=== PATIENT | male | born 1975 | race Caucasian/White ===

== ENCOUNTER 2023-03-17 21:57 | Emergency (ER) | payer SELFPAY ==
[2023-03-17 22:06] VITALS: BP 136/89; PULSE 63; RESP 14; TEMP 36.5; O2SAT 99; BMI 30.9
[2023-03-17 22:13] VITALS: BP 149/93; PULSE 79; RESP 16; O2SAT 100
--- NOTE | 2023-03-17 22:13 | XRR_ITS ---
PROCEDURE INFORMATION: Exam: XR Chest Exam date and time: 03/17/2023 10:18 PM Age: 47 years old Clinical indication: Pain; Chest pressure; Additional info: Cp TECHNIQUE: Imaging protocol: Radiologic exam of the chest. Views: 1 view. COMPARISON: No relevant prior studies available. FINDINGS: Lungs: Unremarkable. No consolidation. Pleural spaces: Unremarkable. No pleural effusion. No pneumothorax. Heart/Mediastinum: Unremarkable. No cardiomegaly. Bones/joints: Unremarkable. XR/XR chest 1V portable [id number] IMPRESSION: No acute findings.
--- NOTE | 2023-03-17 22:14 | ED_ITS ---
HPI - General Adult General: Chief complaint: General Medical Stated complaint: high bp Time Seen by Provider: 03/17/23 22:10 Source: patient Mode of arrival: ambulatory Limitations: no limitations History of Present Illness: 47-year-old male has a history of hypertension states that his blood pressure been running high states his PCP had him increase his lisinopril from 20 to 30 mg states that he is concerned as today's blood pressures been running higher than normal today's blood pressure in triage is normal he states he had some slight pain in his left shoulder as well throughout the day. Denies any shortness of breath or fever Associated symptoms: Reports chest pain; Deny dyspnea, headache(s), nausea, rash or vomiting Review of Systems Const: Denies: fever(s) or chills ENMT: Denies: throat pain or dental pain Card: Reports: chest pain Resp: Denies: dyspnea GI: Denies: abdominal pain, nausea, vomiting or diarrhea : Denies: dysuria Musc: Denies: neck pain or back pain Skin/Breast: Denies: rash Neuro: Denies: headache(s) PFSH ED PFSH: Medical History (Updated 03/17/23 @ 23:31 by Emily Palacios MD) Hypertension Social History (Updated 03/17/23 @ 22:15 by Emily Palacios MD) Substance/Drug Use: unknown Physical Exam Const: COMMON NORMALS: no acute distress, patient oriented x3 and healthy appearing HENMT: COMMON NORMALS: normocephalic and atraumatic HEAD & SCALP: normocephalic and atraumatic Eye: COMMON NORMALS: Equal, round and reactive pupils present and EOMs intact bilaterally PUPIL: Yes Equal, round and reactive pupils present Neck/C-Spine: COMMON NORMALS: full ROM and supple Chest: COMMONS NORMALS: normal inspection of the chest and normal palpation of entire chest wall Resp: COMMON NORMALS: normal respiratory effort, No retractions, No use of accessory muscles and clear to auscultation bilaterally AUSCULTATION: clear to auscultation bilaterally Cardio: COMMON NORMALS: regular rate, regular rhythm and No murmurs present (Cardio) RATE: regular rate RHYTHM: regular rhythm GI: COMMON NORMALS: Normal to inspection, nondistended, normoactive bowel sounds present, Soft to palpation, non-tender and no masses PALPATION: Yes Soft to palpation Extremity: COMMON NORMALS: normal to inspection and full ROM Neuro: COMMON NORMALS: patient oriented x3, moves all extremities and no focal motor deficits Psych: COMMON NORMALS: mental status grossly normal, Normal thought process present and cooperative THOUGHT PROCESS: Normal thought process present Skin: COMMON NORMALS: no rashes or lesions noted and no wounds GENERAL SKIN EXAM: no rashes or lesions noted Course Vital Signs: Vital signs: Vital Signs Temperature 97.7 F 03/17/23 22:06 Pulse Rate 79 03/17/23 23:42 Respiratory Rate 15 03/17/23 23:42 Blood Pressure 132/90 03/17/23 23:42 Pulse Oximetry 97 03/17/23 23:42 Oxygen Delivery Me thod Room Air 03/17/23 22:13 MDM - General Adult Medical Decision Making Patient presents here with hypertension blood work here is normal troponin is normal we will start him on Norvasc with his lisinopril he is follow-up with PCP and return if worsening. Medical Records I reviewed the patient's medical records. Lab Data I reviewed the patient's lab results. 03/17/23 22:55 03/17/23 22:55 Radiology Impressions Chest X-Ray 03/17/23 22:13 IMPRESSION: No acute findings. Laboratory Results WBC 7.3 10^3/uL (4.0-10.0) 03/17/23 22:55 RBC 5.58 10^6/uL (4.1-5.3) H 03/17/23 22:55 Hgb 15.9 g/dL (11.7-16.6) 03/17/23 22:55 Hct 48.4 % (42.0-52.0) 03/17/23 22:55 MCV 86.7 fl (80-94) 03/17/23 22:55 MCH 28.5 pg (28.0-34.0) 03/17/23 22:55 MCHC 32.9 g/dL (30.0-36.0) 03/17/23 22:55 RDW 13.0 % (12.1-15.1) 03/17/23 22:55 Plt Count 236 10^3/cmm (130-400) 03/17/23 22:55 MPV 11.4 fL (7.4-10.4) H 03/17/23 22:55 Neut % (Auto) 36.8 % 03/17/23 22:55 Lymph % (Auto) 42.1 % 03/17/23 22:55 Rains % (Auto) 8.5 % 03/17/23 22:55 Eos % (Auto) 11.3 % 03/17/23 22:55 Baso % (Auto) 1.2 % 03/17/23 22:55 Neut # (Auto) 2.66 10^3/uL (1.8-7.7) 03/17/23 22:55 Lymph # (Auto) 3.1 10^3/uL (0.8-4.8) 03/17/23 22:55 Rains # (Auto) 0.6 10^3/uL (0.2-0.9) 03/17/23 22:55 Eos # (Auto) 0.8 10^3/uL (0.0-0.8) 03/17/23 22:55 Baso # (Auto) 0.1 10^3/uL (0.0-0.1) 03/17/23 22:55 Nucleated RBC % (auto) 0 % 03/17/23 22:55 Nucleated RBCs # 0.0 /100WBC 03/17/23 22:55 Sodium 141 mmol/L (136-145) 03/17/23 22:55 Potassium 3.9 mmol/L (3.5-5.1) 03/17/23 22:55 Chloride 105 mmol/L (98-107) 03/17/23 22:55 Carbon Dioxide 25 mmol/L (22-29) 03/17/23 22:55 Anion Gap 14.9 (5-19) 03/17/23 22:55 BUN 17 mg/dL (6-20) 03/17/23 22:55 Creatinine 0.9 mg/dL (0.7-1.2) 03/17/23 22:55 GFR Calculation 89.7 mL/min (90-130) L 03/17/23 22:55 Glucose 91 mg/dL (65-115) 03/17/23 22:55 Calculated Osmolality 293 mOsm/kg (285-295) 03/17/23 22:55 Calcium 10.0 mg/dL (8.5-10.5) 03/17/23 22:55 Total Bilirubin 0.2 mg/dL (0.15-1.2) 03/17/23 22:55 AST 14 U/L (0-40) 03/17/23 22:55 ALT 16 U/L (0-41) 03/17/23 22:55 Alkaline Phosphatase 77 U/L (40-130) 03/17/23 22:55 Troponin T Baseline 6 ng/L (0-15) 03/17/23 22:55 Total Protein 7.3 g/dL (6.6-8.7) 03/17/23 22:55 Albumin 4.5 g/dL (3.5-5.2) 03/17/23 22:55 Globulin 2.8 g/dL (1.3-4.6) 03/17/23 22:55 Discharge Plan Discharge Patient Disposition: Home Clinical Impression: Hypertension Prescriptions: New Norvasc 5 mg tablet 5 mg PO DAILY Qty: 30 0RF Discharge Orders: Discharge ED (Routine); Ordered 03/17/23 Ordered By: Emily Palacios Referrals: Sharmaine Jackson FNP [Primary Care Provider] - 1-3 days Discharge Diet: Advance as tolerated Discharge Activity: Resume usual activity Patient Instructions: Hypertension (ED) Coding Level of Care Code ED Assistance Representative for Derrek Bass
--- NOTE | 2023-03-17 22:23 | ECG_ITS ---
[facility] Test Date: 2023-03-17 Pat Name: Musthaq Doshi Department: Room: Gender: Male Product Architect: : [id number] Requested By: Emily Palacios Order Number: [id number] Iftikhar MD: Adithya Mcclure M.D. Measurements Intervals [place] Rate: 68 P: 123 IL: 131 QRS: 128 QRSD: 105 T: 147 QT: 352 QTc: 376 Interpretive Statements SINUS RHYTHM ARM LEADS REVERSED [INVERTED P AND QRS IN I] No previous ECG available for comparison Electronically Signed On 03-18-2023 15:51:46 CDT by Adithya Mcclure M.D. [email or web address]
[2023-03-17] MEDS: amlodipine 5 mg Tablet PO (22:31)
[2023-03-17 23:06] LABS: Basophils # 0.1 10^3/uL (0.0-0.1); Basophils % 1.2 %; Eosinophils # 0.8 10^3/uL (0.0-0.8); Eosinophils % 11.3 %; Hematocrit 48.4 % (42.0-52.0); Hemoglobin 15.9 g/dL (11.7-16.6); Lymphocytes # 3.1 10^3/uL (0.8-4.8); Lymphocytes % 42.1 %; Mean Corpuscular HGB Conc 32.9 g/dL (30.0-36.0); Mean Corpuscular Hemoglobin 28.5 pg (28.0-34.0); Mean Corpuscular Volume 86.7 fl (80-94); Mean Platelet Volume 11.4 fL (7.4-10.4); Monocytes # 0.6 10^3/uL (0.2-0.9); Monocytes % 8.5 %; Neutrophils # 2.66 10^3/uL (1.8-7.7); Neutrophils % 36.8 %; Nucleated Red Blood Cells % 0 %; Platelet Count 236 10^3/cmm (130-400); Red Blood Count 5.58 10^6/uL (4.1-5.3); White Blood Count 7.3 10^3/uL (4.0-10.0)
[2023-03-17 23:23] LABS: Troponin(5th) Baseline 6 ng/L (0-15)
[2023-03-17 23:24] LABS: Alanine Aminotransferase 16 U/L (0-41); Albumin Level 4.5 g/dL (3.5-5.2); Alkaline Phosphatase 77 U/L (40-130); Anion Gap 14.9 (5-19); Aspartate Amino Transferase 14 U/L (0-40); Blood Urea Nitrogen 17 mg/dL (6-20); Carbon Dioxide 25 mmol/L (22-29); Chloride 105 mmol/L (98-107); Globulin 2.8 g/dL (1.3-4.6); Glomerular Filtration Rate 89.7 mL/min (90-130); Glucose 91 mg/dL (65-115); Osmolality Calculated 293 mOsm/kg (285-295); Potassium 3.9 mmol/L (3.5-5.1); Sodium 141 mmol/L (136-145); Total Bilirubin 0.2 mg/dL (0.15-1.2); Total Protein 7.3 g/dL (6.6-8.7)
[2023-03-17 23:42] VITALS: BP 132/90; PULSE 79; RESP 15; O2SAT 97
== END 2023-03-17 23:43 | disposition home or self-care (01) ==
PROVIDERS: Emergency Provider Emergency Medicine; PCP Nurse Practitioner
DX: I10 Essential (primary) hypertension (principal)
CPT/HCPCS: 71045; 80053; 84484; 85025; 93005; 99285